=== PATIENT | female | born 1990 | race Caucasian/White ===

== ENCOUNTER 2025-03-26 12:51 | Outpatient (CLI) | payer MEDICAID, SELFPAY ==
--- NOTE | 2025-03-26 13:00 | CRLHL7_ITS ---
For Patients: As a result of the Cures Act, medical imaging exams and procedure reports are released immediately into your electronic medical record. You may view this report before your referring provider. If you have questions, please contact your health care provider. OB ULTRASOUND LESS THAN 14 WEEKS, 03/26/2025 CLINICAL HISTORY: Dating and viability. COMPARISON: None. TECHNIQUE: Real time degroot scale imaging of the fetus was performed transvaginally. FINDINGS: Imaging: TV. LMP: 01/24/2025. ELIZABETH by LMP: 10/31/2025. GA: 8 weeks 5 days. CRL: 2.3 cm, 9 weeks 0 days. ELIZABETH: 10/29/2025. FHR: 167 bpm. GEST SAC: 4.0 cm, appears within normal limits. YOLK SAC: 3.7 mm, appears within normal limits. RIGHT OV: 4.9 x 3.4 x 4.6 cm. LEFT OV: N/V. IMPRESSION: Single living intrauterine measuring 9 weeks 0 days and sonographic due date 10/29/2025. Simple right ovarian cyst measures 3.2 x 2.8 x 2.4 cm. Tres Loomis M.D. Diagnostic Radiologist [email or web address] Transcribed: 2:41 pm DW/Dictated by: Tres Loomis MD @ 03/26/2025 2:31:00 PM (Electronically Signed)
== END 2025-03-26 12:52 | disposition home or self-care (01) ==
LOC: US 12:53
PROVIDERS: PCP Family Medicine; Visit Provider Advanced Practice Midwife
DX: O34.81 Maternal care for other abnormalities of pelvic organs, first trimester (principal); N83.291 Other ovarian cyst, right side; Z3A.09 9 weeks gestation of pregnancy
CPT/HCPCS: 76817; 82565; 82570; 83021; 84156; 84450; 84460; 84520; 86703; 86706; 86803; 86850; 86900; 86901; 87086; 87340

== ENCOUNTER 2025-03-26 14:03 | Outpatient (CLI) | payer MEDICAID, SELFPAY | END 2025-03-26 14:04 | disposition home or self-care (01) | PROVIDERS: PCP Family Medicine; Visit Provider Advanced Practice Midwife | DX: Z34.81 Encounter for supervision of other normal pregnancy, first trimester (principal) | CPT/HCPCS: 82565; 82570; 83020; 83021; 84156; 84450; 84460; 84520; 85660; 86592; 86703; 86704; 86706; 86762; 86787; 86803; 86850; 86900; 86901; 87086; 87340 ==

== ENCOUNTER 2025-04-16 09:05 | Outpatient (CLI) | payer MEDICAID, SELFPAY | END 2025-04-16 09:06 | disposition home or self-care (01) | LOC: FRMREF 09:06 | PROVIDERS: PCP Family Medicine; Visit Provider Advanced Practice Midwife | DX: J02.9 Acute pharyngitis, unspecified (principal); Z20.828 Contact with and (suspected) exposure to other viral communicable diseases | CPT/HCPCS: 86747 ==

== ENCOUNTER 2025-04-18 17:36 | Emergency (ER) | payer MEDICAID, SELFPAY ==
--- OUTSIDE RECORDS SUMMARY | 2025-04-18 17:38 | XMS_ITS | Clinical Summary ---
Author Organization [employer] Address [address] [place] [id number] Care Team Providers Care Greaser Operator Name Role Phone Erika Bonner Primary Care Provider [phone] Dwaine Sandhu MD Unavailable Beatrice Clements RD Unavailable [phone] Katerina Mena RN Unavailable Allergies No known active allergies Medications vit no.124/iron/foli c ( VITAMIN ORAL) Take by mouth. Active sertraline (ZOLOFT) 100 mg tabletIndication s:Anxiety Take 1 Tablet (100 mg) by mouth once daily in the morning. 90 Tablet 12/30/2024 Active sertraline 50 mg tabletIndication s:Anxiety TAKE 1 TABLET (50 MG) BY MOUTH ONCE DAILY IN THE MORNING. 30 Tablet 1 02/27/2025 Active Active Problems Patient Care Coordination No te Formatting of this note is d ifferent from the original. Weight Management - Adult Surgical Program Patient Received Binder: Yes - received in the mail Part of KTYA Program: no RDC or GS Patient: No Initial Consult / Established Care 04/11/[address] Dwaine Mena RN [facility] Candidate: no Intake: Wt Readings from Last 1 Encounters: 04/11/23 102.1 kg (225 lb) lbs, Ht Readings from Last 1 Encounters: 04/11/23 1.651 m (5' 5) BMI: 37.44-Accurate weight Planned Operation Sleeve Gastrectomy Payor: [facility] / Plan: [facility] / Product Type: *No Product type* / Insurance requirements:Six months (non consecutive) , Rule out endocrine, H Pylori , and Must include discussion that the patient is not and there are no plans of becoming within 18 months after surgery. Est. Pgm Completion: ~ October, Procedure Location: [facility] Co-morbidities: NONE Orders: Labs Yes Imaging / Procedures Abdominal Ultrasound IMPRESSION: 1. No evidence of gallstones or cholecystitis. 2. Left hepatic lobe cavernous hemangioma. 3. Normal common bile duct. Pre-Surgery Program Consults: - Registered Dietitian 6 - Psychological Evaluation: yes-Consult 04/26-09/16: Shannon has told me she may not qualify for surgery due to low BMI. If she does qualify based on her insurance plan, FYI she is NOT CLEARED by me at this time. She still needs to send me her psychotherapy records, and she is aware of this. Once she sends me the records I'm needing from her therapist (noted in the report) I can go back into the report and addend it, in order to clear her from a MH perspective. But for now, she is not cleared. Let me know if you have questons! Thanks, Vy Referrals: Yes - Sleep Medicine for HÉCTOR work-up: Consult to [place] - Hematology: - Gastroenterology: - Cardiology: - Orthopedics: Referral placed - PT: Referral placed -Tobacco Cessation: reports that she has quit smoking. Her smoking use included cigarettes. She has a 2.5 pack-year smoking history. She has never used smokeless tobacco. Future Appointments Date Time Provider Department Center 04/11/2023 12:30 PM Beatrice Goldman, FRAN[facility] SSUT[facility] SSUT 04/25/2023 8:00 AM Caity Oliveros, VALERIE [facility] 04/26/2023 12:00 PM Vy Mchugh, PhD, LP UDBWPC UD 05/02/2023 4:30 PM Erika Bonner PA HASTFP HAST Problem Noted Date Diagnosed Date Cervical high risk HPV (human papillomavirus) te st positive 02/07/2024 Overview (02/07/2024): 01/2024 NIL/HPV 16+, HPV 18 negative, other HPV negative Plan: colposcopy Obesity, Class II, BMI 35-39.9 04/11/2023 IUD (intrauterine device) in place 08/26/2022 Overview (08/26/2022): Mirena: 2019 Gestational (-induc ed) hypertension without significant proteinuria, complicating childbirth 05/01/2020 Gestational hypertension, third trimester 2017 Supervision of high risk , antepartum 0 01/01/2018 Overview (01/23/2018): [facility] CON[facility] ON 01/05/18 --rescheduled for 01/23/18 REASON FOR CONSULT: Should she be on baby ASA? Should she get 17P? TODAY'S APPOINTMENT: MD Consultation PRIMARY DIAGNOSIS: 27 y.o. Estimated Date of Delivery: 08/10/18 H/O PIH requiring induction and early delivery at 34w5d (6 lb 3.5 oz baby--went home with mom) -[facility], but delivery notes are not ([facility]) LAST GROWTH: 12/22/17 (7w2d) dating REFERRING PHYSICIAN/PHONE/LAST UPDATE: Dr. Odessa Dasilva, PUMP SERVICER [facility] approves scheduling of recommended ultrasounds/testing: No GENETICS: PERTINENT LABS: A Pos PERTINENT MEDS: PNV PLAN OF CARE: Screening for thyroid disorder 05/08/2008 Overview (05/08/2008): TSH (UIU/mL) Date Value 05/05/08 3.55* T4,FREE (ng/dL) Date Value 05/05/08 1.2 05/05/2008 antithyroid antibodies negative Encounter for annual routine gynecological exami nation Hx of preeclampsia, prior pr egnancy, currently , first trimester Hx of preeclampsia, prior pr egnancy, currently , third trimester Encounters Date Type Department Care Team Description 04/18/2025 Nurse Triage [facility] [address] [place] [address] Erika Bonner PA Vaginal Bleeding 03/26/[address] [facility] Scanner 1 scan: (1-Ord) [place], OB TRANSVAGINAL, 03/26/2025 02/18/2025 Refill [facility] [address] [place] [address] Martha Garcia MD Refill Request (Sertraline) from Last 3 Months Immunizations Immunization Administration Dates Next Due COVID-19 vaccine (Think2-J& J) PF, MDV 03/06/2021 DTaP 07/16/1993, 0,02/03/1989,1988,1988 Hepatitis A (Adult) 11/17/2005 Hepatitis A (Peds) 11/17/2005 Hepatitis A, Unspecified 11/17/2005 Hepatitis B (Peds) 10/05/2001,07/18/2000, 993 Influenza, IIV4 08/26/2022,09/20/2021,08/14/2020 Influenza, IIV4 (=>6mos) MDV 08/29/2019 Influenza,CCIIV4 PRESERV FREE 10/11/2018 MMR 05/03/2020,07/18/2000,12/22/1989 Oral Polio Vaccine 07/16/1993, 0,1988,1987 Td (Age >=7 Years) 07/18/2000 Tdap 06/07/2018,07/27/2007 Family History Medical History Relation Name Comments Hyperlipidemia Father Hypertension Father Obesity Father Cancer Maternal Grandfather bladder cancer Heart Disease Maternal Grandfather Good Health Maternal Grandmother Obesity Maternal Grandmother Hypertension Mother Obesity Mother Cancer Paternal Grandfather bone ca ncer Cancer-prostate Paternal Grandfather Diabetes Paternal Grandmother Heart Disease Paternal Grandmother Other Paternal Grandmother dementi a Stroke Paternal Grandmother Good Health Sister 1 Good Health Sister 2 Obesity Sister 2 Good Health Sister 3 Hyperlipidemia Sister 3 Hypertension Sister 3 Obesity Sister 3 Relation Name Status Comments Father Alive Maternal Grandfather Maternal Grandmother Alive Mother Alive Paternal Grandfather Paternal Grandmother Sister 1 Sister 2 Sister 3 Social History Tobacco Use Types Packs/Day Years Used Date Smoking Tobacco: Former Cigarettes 0.3 12 2 004 - 2016 Smokeless Tobacco: Never Tobacco Cessation:Counseling Given: Not Answered Comments:Quit in January of 2016 Alcohol Use Standard Drinks/Week Comments Yes 0 (1 standard drink = 0.6 oz pure alcohol) social: 6 beers/ weekend-not with PHQ-2 Answer Date Recorded PHQ-2 TOTAL SCORE 1 12/04/2024 Social Connections Answer Date Recorded Do you often feel lonely or isolated from those around you? 0 04/16/2024 Financial Resource Strain Answer Date R ecorded Difficulty of Paying Living Expenses 3 04/16/2024 Difficulty of Paying Living Expenses Not on file 04/16/2024 Food Insecurity Answer Date Recorded Do you worry your food will run out before you are able to buy more? 1 04/16/2024 Transportation Needs Answer Date Record ed Does lack of transportation keep you from medica l appointments? 1 04/16/2024 Does lack of transportation keep you from work, meetings or getting things that you need? 1 04/16/2024 Housing Stability Answer Date Recorded What is your housing situation today? 1 04/16/2024 Interpersonal Safety Answer Date Record ed Are you being hit, kicked, p ushed or yelled at (see row info)? No 01/18/2025 Interpersonal Safety Abuse 12 - 18 Not on file 01/18/2025 Interpersonal Safety Ambulatory Vulnerability No t on file 01/18/2025 Utilities Answer Date Recorded Do you have trouble paying f or utilities (for example, heat, electricity, water, phone)? 1 04/16/2024 Comments No Sex and Gender Information Value Date Recorded Sex Assigned at Not on file Legal Sex Female 5:25 AM FRONT DESK SPECIALIST Gender Identity Not on file Sexual Orientation Not on file Occupation Industry Job Start Date Job End Date [employer] and going to school Not on file Not on file Not on file Obstetrics History Para Term AB IAB SAB Ectopic Multiple Livin g Live Births 3 3 2 1 0 0 0 0 3 3 Date Outcome GA Total Labor Labor/2nd/3rd Weight Sex Type Anes PTL Sunita A1 A5 Name Clin 2003 34w 5d 2.81 kg (6 lb 3 oz) M VAGINA L ELIZABETH N Livin g Alessandra n Edstr om Comments:preclampsia, delivered at 34+ weeks, bedrest, induced 2017 Term 39w 1d 3.2 kg (7 lb 1 oz) F Vag Epidur al N Livin g 8 9 Luis Eduardo Benavides is Freddy Dasilva Delivery [facility] 2019 Term 39w 5d 4h 35m 4h 23m/0h 06m/0h 06m 3.55 kg (7 lb 13.2 oz) M Vag-Sp ont Epidur al N Livin g 9 10 Cathy MACHADO MD Complications:None Delivery Location:[facility] ( [facility]) Last Filed Vital Signs Vital Sign Reading Time Taken Comments Blood Pressure 120/85 01/18/2025 6:30 PM FRONT DESK SPECIALIST Pulse 98 01/18/2025 6:30 PM FRONT DESK SPECIALIST Temperature 37.8 C (100.1 F) 01/18/2025 3:44 PM FRONT DESK SPECIALIST Respiratory Rate 12 01/18/2025 6:30 PM FRONT DESK SPECIALIST Oxygen Saturation 96% 01/18/2025 6:30 PM FRONT DESK SPECIALIST Inhaled Oxygen Concentration - - Weight 110.2 kg (243 lb) 01/18/2025 3:43 PM FRONT DESK SPECIALIST Height 167.6 cm (5' 6) 01/18/2025 3:43 PM FRONT DESK SPECIALIST Body Mass Index 39.22 01/18/2025 3:43 PM FRONT DESK SPECIALIST Plan of Treatment Health Maintenance Due Date Last Done Comments COVID-19 vaccine series ( season) 2024 10/15/2021, 03/06/2021 Pap test for age 21-65 01/29/2025 , 01/30/2024, 05/11/2020 (Completed outside of [facility]), Additional history exists Influenza Vaccine (Season Ended) 2025 08/26/2022, 09/20/2021, 08/14/2020, Additional history exists BMI (ht and wt on same day) for age 18+ 12/04/2025 12/04/2024, 09/06/2023, 08/09/2023, Additional history exists Depression screening for age 12+ 12/04/2025 12/04/2024 Tetanus booster 06/07/2028 06/07/2018, 06/29, 07/18/2000 Hepatitis B series for 19+ Completed 10/05, 07/18/2000, 07/16/1993 Tdap Completed 06/07/2018, 07/27/2007 HIV for age 15-65 Completed 02/28/2023, , 12/05/2017 Hepatitis C screening for age 18-79 Completed 02/28/2023 Pneumococcal series for age 6-49 Aged Out No longer eligible based on patient's age to complete this topic Procedures Procedure Name Priority Date/Time Associated Diagnosis Comments SCAN-ULTRASOUND REPORT 03/26/2025 12:00 AM CDT SOX ANALYST THIN PREP PAP SCREEN IMAGED Routine 01/30/2024 5:47 PM FRONT DESK SPECIALIST Screening for malignant neoplasm of cervix LC HIV-1/O/2, 4TH GENERATION Routine 02/28/2023 5:40 PM CDT Routine screening for STI (sexually transmitted infection) LC HCV ANTIBODY RFX TO QUANT PCR Routine 02/28/2023 5:40 PM CDT Encounter for hepatitis C screening test for low risk patient from Last 3 Months or Most Recently Relevant to Health Maintenance Results * SCAN-ULTRASOUND REPORT (03/26/2025 12:00 AM CDT) Anatomical Region Laterality Modality Other us Scanner OTHER Final Result * SOX ANALYST THIN PREP PAP SCREEN IMAGED [[id number]] (01/30/2024 5:47 PM FRONT DESK SPECIALIST) Case Report Gynecologic Cytology Report Case: [id number] Authorizing Provider: Martha Garcia MD Collected: 01/30/2024 0691 Ordering Location: [facility] Received: 01/30/2024 181 Clinic First Screen: Baccam, Minie Specimen: SOX ANALYST ThinPrep Vial Screening, Cervical 02/06/2024 6:28 PM CDT [facility] ENTRAL LABORATORY INTERPRETATION /RESULT NEGATIVE FOR INTRAEPITHELIAL LESION OR MALIGNANCY (NIL) (none) 02/06/2024 6:28 PM CDT [facility]-C ENTRAL LABORATORY at 1828 CDT SPECIMEN ADEQUACY Satisfactory for evaluation Endocervical component present 02/06/2024 6:28 PM CDT [facility] HPV REQUEST HPV and PAP 02/06/2024 6:28 PM CDT [facility] Date of LMP Mirena in place--no periods 02/06/2024 6:28 PM CDT [facility] Last Pap Date 09/10/18 02/06/2024 6:28 PM CDT [facility] Last Pap Result NIL 02/06/2024 6:28 PM CDT [facility] Abnormal Pap or [place] Bx in last 5 years No 02/06/2024 6:28 PM CDT [facility] Menstrual Status Irregular Periods 02/06/2024 6:28 PM CDT [facility] [place] Bx Done Today No 02/06/2024 6:28 PM CDT [facility] Additional Information None given 02/06/2024 6:28 PM CDT [facility] Comment: Cytology is screened at [facility] - [address], [place] [address] and [facility] - [address] [place] [address] and [facility] - [address] [place] [address] Interpreted at [facility] - [address], [place] [address] Automated Review Failed 02/06/2024 6:28 PM CDT [facility] Comment:Processing failed, m anual screening required. ThinPrep Imaging System, [employer] ANCILLARY TESTING SOX ANALYST HPV Ordered, Please see separate report 02/06/2024 6:28 PM CDT [facility] Note The pap test is a screening technique, not a diagnostic procedure. It is used primarily to screen for squamous cancers and precursor lesions. Published studies have shown that it is subject to both false negative and false positive results. The pap test should not be used as the sole means to diagnose or exclude pre-malignant and malignant lesions. 02/06/2024 6:28 PM CDT [facility]-C ENTRAL LABORATORY Other (Cervical) Non-Blood / Unknown 01/30/2024 5:47 PM FRONT DESK SPECIALIST 01/30/2024 6:19 PM FRONT DESK SPECIALIST us Martha Garcia MD PATHOLOGY/CYTOLOGY Final Re sult [facility] [address] [place] [address], [place] * LC HCV ANTIBODY RFX TO QUANT PCR (02/28/2023 5:40 PM CDT) Pathologist [facility] HCV Ab Non Reactive Non Reactive 03/03/2023 12:08 PM CDT [facility] ([facility]) Blood BLOOD SPECIMEN / Unknown Venipuncture / Unknown 02/28/2023 5:40 PM CDT 02/28/2023 5:40 PM CDT Narrative [facility] ([facility]) - 03/03/2023 12:08 PM CDT Performed at: [address] [place] [id number] Arts Education Teacher: Gab Gorman MD, Phone: [phone] us [facility] Final Resu lt Performing Organization Address City/[facility]/ZIP Co de Phone Number [facility] ([facility]) [facility] [place] [address], [place] * LC HIV-1/O/2, 4TH GENERATION (02/28/2023 5:40 PM CDT) Pathologist [facility] HIV Scr 4th Gen Non Reactive Non Reactive 03/03/2023 12:08 PM CDT [facility] ([facility]) Comment: HIV Negative HIV-1/HIV-2 antibodies and HIV-1 p24 antigen were NOT detected. There is no laboratory evidence of HIV infection. Blood BLOOD SPECIMEN / Unknown Venipuncture / Unknown 02/28/2023 5:40 PM CDT 02/28/2023 5:40 PM CDT Narrative [facility] ([facility]) - 03/03/2023 12:08 PM CDT Performed at: [address] [id number] Arts Education Teacher: Gab Gorman MD, Phone: [phone] us [facility] Final Resu lt [facility] ([facility]) [facility] [place] [address], from Last 3 Months or Most Recently Relevant to [place] [id number] [facility] [place] [id number] Advance Directives * Full Code (Latest Code Status on File) Date Activated Date Inactivated Comments 08/03/2018 9:12 AM 08/05/2018 9:41 PM Question Answer Comments Code Status Discussion: Not Discussed * Full Code Date Activated Date Inactivated Comments 06/11/2018 10:32 AM 06/11/2018 1:34 PM Care Teams Greaser Operator Relationship Specialty Start Date End Date Erika Bonner PA [address] [place] [address] PCP - General Physician Fryer Operator 03/24/21 Dwaine Sandhu MD [address] [place] [id number] Surgery - General 04/10/[address] [place] [address] Firearms Sales Associate 04/10/23 Katerina Mena, RN [address] [place] [address] Registered Nurse 04/11/23
[2025-04-18 17:43] VITALS: BP 136/81; PULSE 94; RESP 16; TEMP 36.9; O2SAT 98; BMI 38.1
--- NOTE | 2025-04-18 18:02 | ED_ITS ---
HPI - General Adult General Date Seen: 04/18/25 Chief complaint: Vaginal Bleeding Stated complaint: 12 weeks , bleeding Time Seen by Provider: 04/18/25 17:47 History of Present Illness HPI narrative: Patient is a 34-year-old at around 12 weeks who is here because of some spotting today. She says she has a little bit of a cold, she was up all night with her 4-year-old who was [facility] and was admitted overnight due to some complications with an ADHD med, so she notes that she has been under quite a bit of stress in the past 24 hours. This afternoon she developed a little bit of mild abdominal cramping and when she wiped she saw some brownish discharge. She came in because of concerns about possible miscarriage. She has not had any further bleeding, does not have any urinary symptoms, denies recent intercourse or trauma, no fevers, no other complaints. She does have a history of preeclampsia with prior pregnancies, this has been complicated by nausea but no other issues. She has had routine [facility] care, blood type is A positive, had an ultrasound around 8 weeks which was unremarkable. Related Data Home Medications ?Medication ?Instructions ?Recorded ?Confirmed vit 168-iron 27 mg-folic 1 cap PO DAILY 03/2604/18/25 acid 800 mcg-omega3 235 mg capsule (One-A-Day -1) sertraline 100 mg tablet 100 mg PO QDAY 03/26/2503/28 Previous Rx's ?Medication ?Instructions ?Recorded metoclopramide HCl 10 mg tablet 10 mg PO Q6H PRN nause a and 03/26/25 (Reglan) vomiting #30 tabs Held on 04/18/25. Instructions: not helping Allergies Allergy/AdvReac Type Severity Reaction Status Date / Time No Known Drug Allergies Allergy Verified 04/18/25 17:43 Review of Systems Status of ROS: Reports: 6 or more systems reviewed and unremarkable except as noted in History and below PFSH PFSH Medical History History of tobacco use ?Z87.891 - Personal history of nicotine dependence (ICD-10) Surgical History [place] teeth extracted ?K08.409 - Partial loss of teeth, unspecified cause, unspecified class (ICD- 10) Hx of adenoidectomy ?Z90.89 - Acquired absence of other organs (ICD-10) Hx of tonsillectomy ?Z90.89 - Acquired absence of other organs (ICD-10) Social History Narrative: tion: ? 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 ? Partner: Adalberto? 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 Lives with: Adalberto and her two youngest children and Adalberto's 2 year old. Oldest child is 20 lives on own? ? Pets: none? ? Abuse: Denies past Safe at home with current partner ? ? ? Special Diet: Denies? ? Ok with a blood transfusion: yes? ? Culture or religion beliefs: denies? RISK FACTORS? ? Exercise Times/wk: activity at work? ? Depression/Anxiety: both, mainly anxiety in past? ? Previous Treatments on medications about 3 years ? Therapy none right now has in past KIARA: 4 PHQ 9: 1? ? Seat Belt Use: Routinely ? Smoking: Denies present? ?Smoked 10 years, 3 packs a week Alcohol/day: Denies while ? ?two drinks a week when not Caffeine: cut out since , one cup a day normally? ? Drug Use: Denies past/present? What is your current living situation?: I presently have a place to live Problems where you live: no known problems In the past 12 months, utilities in danger of being shut off: no In past 12 months, lack of transportation kept you from medical appts, meetings, work, or getting things needed for daily living: no In the past 12 mos, have been you worried that your food would run out before you had money to buy more?: never true In the past 12 mos, the food you bought just didn't last and you didn't have money to buy more?: never true How often does anyone, including family, friends and others, physically hurt you : never How often does anyone, including family, friends and others, insult or talk down to you: never How often does anyone, including family, friends and others, threaten you with harm: never How often does anyone, including family, friends and others, scream or curse at you: never Exam Narrative: Exam Narrative: Vital signs reviewed In general, alert, nontoxic woman. Somewhat anxious. Heart: Regular rate and rhythm. Lungs: Clear. Abdomen: Soft, nontender. Extremities: Well perfused. Skin: Warm and dry. Const: Vital Signs, click to edit/add: Vital Signs - 24 hr 04/18/25 17:43 Temperature 98.4 F Pulse Rate [Pulse Oximeter] 94 Respiratory Rate 16 Blood Pressure [Ri ght Upper Arm] 136/81 Pulse Oximetry 98 Oxygen Delivery Me thod Room Air Course Course ED Course: Patient presents with mild spotting at 12 weeks, no other concerning features. She is A positive. I do not think she needs blood work. We looked with the bedside ultrasound, she has a viable intrauterine , heart rate around 130, good movement, normal appearing amount of amniotic fluid. Discussed whether to do a formal ultrasound, she does not feel the need for that, she just wanted to confirm that baby looked okay. Discussed that there is no way to predict what will happen with this , but that at this stage we also can not really intervene. Recommend relative rest, nothing per vagina for the next week. Call [facility] at any time for continued concerns. Return to the ER for significant bleeding or cramping, fevers, or other worsening. Vital Signs Vital signs: Initial Vital Signs Temperature 98.4 F 04/18/25 17:43 Temperature Source Temporal Artery Scan 04/18/25 17:43 Pulse Rate 94 04/18/25 17:43 Respiratory Rate 16 04/18/25 17:43 Blood Pressure 136/81 04/18/25 17:43 Blood Pressure Mean 99 04/18/25 17:43 Blood Pressure Position Sitting 04/18/25 17:43 Pulse Oximetry 98 04/18/25 17:43 Oxygen Delivery Method Room Air 04/18/25 17:43 Vital Signs Temperature 98.4 F 04/18/25 17:43 Pulse Rate 94 04/18/25 17:43 Respiratory Rate 16 04/18/25 17:43 Blood Pressure 136/81 04/18/25 17:43 Pulse Oximetry 98 04/18/25 17:43 Oxygen Delivery Method Room Air 04/18/25 17:43 Temperature 98.4 F 04/18/25 17:43 Pulse Rate 94 04/18/25 17:43 Respiratory Rate 16 04/18/25 17:43 Blood Pressure 136/81 04/18/25 17:43 Pulse Oximetry 98 04/18/25 17:43 Oxygen Delivery Method Room Air 04/18/25 17:43 Discharge Plan Discharge Prescriptions: No Action sertraline 100 mg tablet 100 mg PO QDAY One-A-Day -1 27 mg iron- 800 mcg-235 mg capsule 1 cap PO DAILY metoclopramide HCl [Reglan] 10 mg tablet 10 mg PO Q6H PRN (Reason: nausea and vomiting) Qty: 30 2RF Follow Up/Referrals: Erika Bonner PA [Primary Care Provider, Family Practice]
== END 2025-04-18 18:25 | disposition home or self-care (01) ==
LOC: ED 18:22
PROVIDERS: Emergency Provider Emergency Medicine; PCP Family Medicine
DX: O20.9 Hemorrhage in early pregnancy, unspecified (principal); Z3A.12 12 weeks gestation of pregnancy
CPT/HCPCS: 99283; 99284

== ENCOUNTER 2025-04-22 09:47 | Outpatient (CLI) | payer MEDICAID, SELFPAY | END 2025-04-22 09:48 | disposition home or self-care (01) | PROVIDERS: PCP Family Medicine; Visit Provider Midwife | DX: Z34.81 Encounter for supervision of other normal pregnancy, first trimester (principal) | CPT/HCPCS: 87491; 87591 ==

== ENCOUNTER 2025-04-28 15:39 | Outpatient (CLI) | payer MEDICAID, SELFPAY ==
[2025-04-30 06:43] LABS: HPV Source Cervical; HPV, High Risk by TMA Detected
[2025-05-01 10:55] LABS: HPV Genotype 16 by TMA Detected; HPV Genotype 18/45 by TMA Not Detected; HPVG Source Cervical
[2025-05-08 15:05] LABS: Pap Test Reviewed by Path Done
== END 2025-04-28 15:40 | disposition home or self-care (01) ==
PROVIDERS: PCP Family Medicine; Visit Provider Obstetrics & Gynecology
DX: R87.810 Cervical high risk human papillomavirus (HPV) DNA test positive (principal); Z12.4 Encounter for screening for malignant neoplasm of cervix; Z11.51 Encounter for screening for human papillomavirus (HPV)
CPT/HCPCS: 87624; 87625; 88141; 88142

== ENCOUNTER 2025-06-11 07:03 | Outpatient (CLI) | payer MEDICAID, SELFPAY | END 2025-06-11 07:04 | disposition home or self-care (01) | LOC: US 07:03 | PROVIDERS: PCP Family Medicine; Visit Provider Midwife | DX: O09.522 Supervision of elderly multigravida, second trimester (principal); O98.312 Other infections with a predominantly sexual mode of transmission complicating pregnancy, second trimester; R87.810 Cervical high risk human papillomavirus (HPV) DNA test positive; Z3A.19 19 weeks gestation of pregnancy | CPT/HCPCS: 76811 ==

== ENCOUNTER 2025-07-02 10:03 | Outpatient (CLI) | payer MEDICAID, SELFPAY | END 2025-07-02 10:04 | disposition home or self-care (01) | PROVIDERS: PCP Family Medicine; Visit Provider Advanced Practice Midwife | DX: Z36.2 Encounter for other antenatal screening follow-up (principal); O09.522 Supervision of elderly multigravida, second trimester; O43.122 Velamentous insertion of umbilical cord, second trimester; Z3A.22 22 weeks gestation of pregnancy | CPT/HCPCS: 76816 ==

== ENCOUNTER 2025-08-12 15:43 | Outpatient (CLI) | payer MEDICAID, SELFPAY | END 2025-08-12 15:44 | disposition home or self-care (01) | LOC: NFLDREF 08-18 18:01 | PROVIDERS: PCP Family Medicine; Referring Provider Family Medicine; Visit Provider Advanced Practice Midwife | DX: Z34.91 Encounter for supervision of normal pregnancy, unspecified, first trimester (principal) | CPT/HCPCS: 86592 ==

== ENCOUNTER 2025-08-12 15:44 | Outpatient (CLI) | payer MEDICAID, SELFPAY ==
--- NOTE | 2025-08-12 16:00 | CRLHL7_ITS ---
For Patients: As a result of the Century Cures Act, medical imaging exams and procedure reports are released immediately into your electronic medical record. You may view this report before your referring provider. If you have questions, please contact your health care provider. OB ULTRASOUND FOLLOW-UP, 08/12/2025 CLINICAL HISTORY: Velamentous cord insertion. COMPARISON: 07/02/2025, 06/11/2025, 03/26/2025. TECHNIQUE: Real time degroot scale imaging of the fetus was performed. Transabdominal imaging performed. FINDINGS: ELIZABETH by LMP: 10/31/2025. GA: 28 weeks 4 days. Gestation: Single. Cervix: Visualized. TA or TV measurement: 4.4 cm. Positioning: Vertex. Amniotic Fluid: 3.9 cm SDP. Placenta: Technique: TA. Bilobed. Placenta Position: Anterior, Posterior. Dopplers: Heart Rate: 139 bpm. BIOMETRY BPD: 7.4 cm, 29 weeks 4 days. 69.0% HC: 27.6 cm, 30 weeks 1 day. 66.7% AC: 24.9 cm, 29 weeks 1 day. 51.1% FL: 5.6 cm, 29 weeks 3 days. 61.2% FL/AC Ratio: 22.46% HC/AC Ratio: 1.11. EFW: 1382 grams, 3 lb 1 oz. age by this US: 29 weeks 4 days. ELIZABETH by this US: 10/24/2025. Percentile by ELIZABETH: 68.0% IMPRESSION: 1. Sonographic gestational age 29 weeks 4 days and sonographic due date 10/24/2025. Sonographic age is 1 week ahead of the clinical age. 2. Estimated weight 68th percentile. Abdominal circumference 61st percentile. Tres Loomis M.D. Diagnostic Radiologist [email or web address] Transcribed: 8:47 am DW/Dictated by: Tres Loomis MD @ 08/13/2025 7:43:00 AM (Electronically Signed)
== END 2025-08-12 15:45 | disposition home or self-care (01) ==
LOC: US 15:44
PROVIDERS: PCP Family Medicine; Visit Provider Advanced Practice Midwife
DX: O43.123 Velamentous insertion of umbilical cord, third trimester (principal); Z3A.29 29 weeks gestation of pregnancy; Z34.91 Encounter for supervision of normal pregnancy, unspecified, first trimester
CPT/HCPCS: 76816; 86592

== ENCOUNTER 2025-09-09 14:55 | Outpatient (CLI) | payer MEDICAID, SELFPAY ==
--- NOTE | 2025-09-09 15:00 | CRLHL7_ITS ---
For Patients: As a result of the Century Cures Act, medical imaging exams and procedure reports are released immediately into your electronic medical record. You may view this report before your referring provider. If you have questions, please contact your health care provider. OB ULTRASOUND FOLLOW-UP GROWTH TRANSABDOMINAL ELIZABETH by LMP . GA: 32 w, 4 d. Single. Comparison: 08/12/2025, 07/02/2025, 06/11/2025. INDICATION: Velamentous cord insertion. TECHNIQUE: Real time degroot scale imaging of the fetus was performed. Transabdominal imaging performed. CERVIX: Not visualized. POSITIONING: Vertex. AMNIOTIC FLUID: 5.9 cm SDP (N: greater than 2 x 1 cm) PLACENTA: Technique: Transabdominal. PLACENTA POSITION: Bilobed, anterior, posterior. DOPPLER: heart rate: 130 bpm. BIOMETRY: BPD: 8.3 cm. 33 w, 2 d, 64.8 percent. HC: 30.5 cm. 34 w, 0 d, 48.9 percent. AC: 30.5 cm. 34 w, 3 d, 92.7 percent. FL: 6.4 cm. 32 w, 6 d, 44.6 percent. FL/AC ratio: 20.82 percent. HC/AC ratio: 1.00. EFW: 2288 g. Weight: 5 lbs, 1 oz. age by this US: 33 w, 5 d. ELIZABETH by this US: 10/23/2025. Percentile by ELIZABETH: 79.4 percent. IMPRESSION: 1. Sonographic gestational age 33 weeks 5 days and sonographic due date 10/23/2025. Sonographic age is 8 days ahead of the clinical age. 2. Estimated weight 79th percentile. Abdominal circumference 93rd percentile. Trse Loomis M.D. Diagnostic Radiologist [email or web address] SP/Dictated by: Tres Loomis MD @ 09/10/2025 5:23:00 PM (Electronically Signed)
== END 2025-09-09 14:56 | disposition home or self-care (01) ==
LOC: US 14:56
PROVIDERS: PCP Family Medicine; Visit Provider Advanced Practice Midwife
DX: O43.123 Velamentous insertion of umbilical cord, third trimester (principal); O36.63X0 Maternal care for excessive fetal growth, third trimester, not applicable or unspecified; Z3A.32 32 weeks gestation of pregnancy
CPT/HCPCS: 76816

== ENCOUNTER 2025-09-09 16:08 | Outpatient (CLI) | payer MEDICAID, SELFPAY ==
[2025-09-09 16:28] VITALS: PULSE 91; O2SAT 99
[2025-09-09 16:32] VITALS: BP 114/59; PULSE 88
[2025-09-09 16:33] VITALS: PULSE 90; O2SAT 98
[2025-09-09 17:04] LABS: Appearance Urine Clear (Clear)
[2025-09-09 17:23] LABS: Trichomonas No Trichomonas Seen (None Seen)
[2025-09-09 17:57] LABS: Hematocrit* 29.7 % (33.0-51.0); Hemoglobin* 10.1 gm/dL (12.0-16.0); Immature Granulocytes Pct Auto 1.2 %; Mean Corpuscular HGB Conc 34 gm/dL (32-36); Mean Corpuscular Hemoglobin 31 pg (26-34); Mean Corpuscular Volume 90 fL (80-100); RDW Coefficient of Variation % 12.8 % (11.5-15.5); Red Blood Count* 3.29 m/uL (4.00-5.20); White Blood Count* 11.59 K/uL (4.50-11.00)
[2025-09-09 18:18] LABS: Immature Granulocytes Abs Auto 0.10 K/uL (0.00-0.30); Lymphocytes Absolute Auto 2.00 K/uL (0.90-2.90); Slide Review Reflex No
--- NOTE | 2025-09-09 19:23 | PC.OBNST ---
NST Note NST Note Start: 09/09/25 16:29 Freq: ONCE Status: Active Protocol: Document 09/09/25 18:22 WMK (Rec: 09/09/25 19:23 WMK No Response) NST Note 4 Para (# of births) 3 EDC 10/31/25 Gestational Age In 32 Weeks & 4 Days Weeks & Days Patient Presented Contractions/cramping with Complaint(s) of Reactive Yes RN Jacky RNC Date 09/09/25 Reactive Yes RN Ajay RN Date 09/09/25 OB NST charge Yes Complete NST Note Yes via Write Note The provider's electronic signature indicates the NST is reactive/appropriate for gestational age. *Note to provider: If an addendum is required, open the patient's chart and click on the note under the Nurse/Allied Health tab.
== END 2025-09-09 18:55 | disposition home or self-care (01) ==
LOC: OB OUT 16:09 → OB 16:10
PROVIDERS: PCP Family Medicine; Visit Provider Advanced Practice Midwife
DX: O47.03 False labor before 37 completed weeks of gestation, third trimester (principal); Z3A.32 32 weeks gestation of pregnancy; O43.123 Velamentous insertion of umbilical cord, third trimester; O36.63X0 Maternal care for excessive fetal growth, third trimester, not applicable or unspecified
CPT/HCPCS: 36415; 59025; 81001; 81003; 82728; 85025; 87086; 87210; G0463

== ENCOUNTER 2025-10-02 11:15 | Outpatient (CLI) | payer MEDICAID, SELFPAY ==
[2025-10-02 11:28] VITALS: PULSE 99; O2SAT 97
[2025-10-02 11:29] VITALS: BP 124/65; PULSE 94; RESP 16; TEMP 36.8
[2025-10-02 13:37] VITALS: BP 126/65; PULSE 81; PULSE 88; RESP 16; TEMP 36.8; O2SAT 100
--- NOTE | 2025-10-02 15:26 | PC.OBNST ---
NST Note NST Note Start: 10/02/25 13:08 Freq: ONCE Status: Active Protocol: Document 10/02/25 13:08 ALYSON (Rec: 10/02/25 15:26 ALYSON [id number]) NST Note 4 Para (# of births) 3 EDC 10/31/25 Gestational Age In 35 Weeks & 6 Days Weeks & Days Patient Presented Contractions/cramping with Complaint(s) of Other Complaints evaluated for pre-term contractions Reactive Yes Appropriate for Yes Gestational Age BEENA Sandhu Date 10/02/25 Reactive Yes Appropriate for Yes Gestational Age BEENA Peralta RN Date 10/02/25 OB NST charge Yes Complete NST Note Yes via Write Note The provider's electronic signature indicates the NST is reactive/appropriate for gestational age. *Note to provider: If an addendum is required, open the patient's chart and click on the note under the Nurse/Allied Health tab.
== END 2025-10-02 13:48 | disposition home or self-care (01) ==
LOC: OB OUT 11:16 → OB 11:16
PROVIDERS: PCP Family Medicine; Visit Provider Obstetrics & Gynecology
DX: O47.03 False labor before 37 completed weeks of gestation, third trimester (principal); Z3A.35 35 weeks gestation of pregnancy
CPT/HCPCS: 59025; G0463

== ENCOUNTER 2025-10-07 12:11 | Outpatient (CLI) | payer MEDICAID, SELFPAY ==
--- NOTE | 2025-10-07 12:15 | CRLHL7_ITS ---
For Patients: As a result of the Century Cures Act, medical imaging exams and procedure reports are released immediately into your electronic medical record. You may view this report before your referring provider. If you have questions, please contact your health care provider. OB ULTRASOUND BIOPHYSICAL PROFILE CLINICAL HISTORY: Velamentous CI. TECHNIQUE: Ultrasound OB pelvis transabdominal. Real-time degroot-scale imaging of the pelvis was performed. COMPARISON: 09/09/2025, 08/12/2025, 07/02/2025. FINDINGS: LMP: 01/24/2025. ELIZABETH by LMP: 10/31/2025. GA: 36 weeks 4 days. Gestation: Single. Cervix: Visualized. Position: Vertex. Amniotic Fluid: 3.3 cm SDP. BIOPHYSICAL PROFILE Gross Body Movements: 2 Tone: 2 Respiratory Activity: 2 Amniotic Fluid SDP: 2 Total Score: 8 Placenta: Bilobed. Technique: TA. Placenta Position: Right wall. Dopplers: Heart Rate: 155 bpm. BIOMETRY BPD: 9.2 cm, 37 weeks 1 day. 76.8% HC: 33.2 cm, 37 weeks 6 days. 53.6% AC: 34.6 cm, 38 weeks 3 days. 95.8 % FL: 7.0 cm, 36 wees 0 days. 33.4% FL/AC Ratio: 20.4% HC/AC Ratio: 0.96. EFW: 3277 grams, 7 lb 4 oz. Age by this US: 37 weeks 3 days. ELIZABETH by this US: 10/25/2025. Percentile by ELIZABETH: 81.9% IMPRESSION: 1. Normal biophysical profile 07/04. 2. Sonographic gestational age 37 weeks 3 days and sonographic due date 10/25/2025. Sonographic age is 6 days ahead of the clinical age. 3. Estimated weight 82nd percentile. Abdominal circumference 95th percentile. 4. Right-sided placenta appears bilobed. Tres Loomis M.D. Diagnostic Radiologist [email or web address] Transcribed: 4:20 am DW/Dictated by: Tres Loomis MD @ 10/07/2025 2:54:00 PM (Electronically Signed)
== END 2025-10-07 12:12 | disposition home or self-care (01) ==
LOC: US 12:11
PROVIDERS: PCP Family Medicine; Visit Provider Advanced Practice Midwife
DX: O43.123 Velamentous insertion of umbilical cord, third trimester (principal); O36.63X0 Maternal care for excessive fetal growth, third trimester, not applicable or unspecified; Z3A.36 36 weeks gestation of pregnancy
CPT/HCPCS: 76816; 76819

== ENCOUNTER 2025-10-14 14:00 | Outpatient (CLI) | payer MEDICAID, SELFPAY ==
--- NOTE | 2025-10-14 14:00 | CRLHL7_ITS ---
For Patients: As a result of the Cures Act, medical imaging exams and procedure reports are released immediately into your electronic medical record. You may view this report before your referring provider. If you have questions, please contact your health care provider. OBSTETRICAL ULTRASOUND ??? BIOPHYSICAL PROFILE INDICATION: Velamentous cord insertion. CLINICAL HISTORY: ELIZABETH by LMP: 10/31/2025 Gestational Age: 37 weeks 4 days PREVIOUS ULTRASOUND: 10/07/2025, 09/09/2025, 08/12/2025. TECHNIQUE: Real-time degroot-scale transabdominal imaging of the fetus was performed. FINDINGS: Fetus: Single Cervix: Not visualized positioning: Vertex Amniotic Fluid: 5.2 cm SDP BIOPHYSICAL PROFILE: Gross body movements: 2 tone: 2 Respiratory activity: 2 Amniotic fluid SDP: 2 Total score: 8 Placenta technique: Transabdominal Placenta position: Bilobed; anterior, fundal, posterior, right wall. heart rate: 120 bpm IMPRESSION: 1. Normal biophysical profile score of 8/8. 2. Bilobed placenta with velamentous cord insertion. TRES MATAMOROS M.D. Diagnostic Radiologist [email or web address] Transcribed: 4:[address]/Dictated by: Tres Matamoros MD @ 10/14/2025 3:29:00 PM (Electronically Signed)
== END 2025-10-14 14:01 | disposition home or self-care (01) ==
LOC: US 14:00
PROVIDERS: PCP Family Medicine; Visit Provider Advanced Practice Midwife
DX: O43.123 Velamentous insertion of umbilical cord, third trimester (principal); O99.213 Obesity complicating pregnancy, third trimester; Z3A.37 37 weeks gestation of pregnancy; O09.293 Supervision of pregnancy with other poor reproductive or obstetric history, third trimester
CPT/HCPCS: 76819

== ENCOUNTER 2025-10-14 14:51 | Outpatient (CLI) | payer MEDICAID, SELFPAY | END 2025-10-14 14:52 | disposition home or self-care (01) | PROVIDERS: PCP Family Medicine; Visit Provider Obstetrics & Gynecology | DX: O09.293 Supervision of pregnancy with other poor reproductive or obstetric history, third trimester (principal); Z3A.37 37 weeks gestation of pregnancy | CPT/HCPCS: 82570; 84156 ==

== ENCOUNTER 2025-10-15 14:37 | Outpatient (CLI) | payer MEDICAID, SELFPAY | END 2025-10-15 14:38 | disposition home or self-care (01) | LOC: NFLDREF 10-19 16:05 | PROVIDERS: PCP Family Medicine; Referring Provider Family Medicine; Visit Provider Obstetrics & Gynecology | DX: O09.293 Supervision of pregnancy with other poor reproductive or obstetric history, third trimester (principal) | CPT/HCPCS: 82565; 84450; 84460; 84520 ==

== ENCOUNTER 2025-10-21 13:52 | Outpatient (CLI) | payer MEDICAID, SELFPAY ==
--- NOTE | 2025-10-21 14:00 | CRLHL7_ITS ---
For Patients: As a result of the Cures Act, medical imaging exams and procedure reports are released immediately into your electronic medical record. You may view this report before your referring provider. If you have questions, please contact your health care provider. OB ULTRASOUND ELIZABETH by LMP: 10/31/2025. GA: 38 w, 4 d. Single. Comparison: 10/14/2025, 10/07/2025, 09/09/2025. INDICATION: Velamentous CI. TECHNIQUE: Real time grayscale imaging of the fetus was performed. Transabdominal. CERVIX: Not visualized. POSITIONING: Vertex. AMNIOTIC FLUID: 6.7 cm. SDP (N: greater than 2 x 1 cm) BIOPHYSICAL PROFILE: 2: Gross body movements 2: tone 2: Respiratory activity 2: Amniotic fluid SDP (N: greater than 2 x 1 cm) 8/8: Total score PLACENTA: Technique: Transabdominal. PLACENTA POSITION: Anterior, bilobed. DOPPLER: heart rate: 154 bpm. IMPRESSION: Normal biophysical profile score 8/8. Tres Loomis M.D. Diagnostic Radiologist [email or web address] ALEA/ezequiel nieves/Dictated by: Tres Loomis MD @ 10/21/2025 3:19:00 PM (Electronically Signed)
== END 2025-10-21 13:53 | disposition home or self-care (01) ==
LOC: US 13:52
PROVIDERS: PCP Family Medicine; Visit Provider Advanced Practice Midwife
DX: O43.123 Velamentous insertion of umbilical cord, third trimester (principal); Z3A.38 38 weeks gestation of pregnancy
CPT/HCPCS: 76819